=== PATIENT | male | born 1950 | race Caucasian/White ===

== ENCOUNTER 2024-10-05 08:22 | Emergency (ER) | payer BC, MEDICARE ==
[2024-10-05] MEDS: Doxycycline 100 MG Cap PO ONE (09:08)
== END 2024-10-05 09:14 | disposition home or self-care (01) ==
LOC: JP.ED 08:22
DX: S80.861A Insect bite (nonvenomous), right lower leg, initial encounter (principal); S80.862A Insect bite (nonvenomous), left lower leg, initial encounter; Z88.5 Allergy status to narcotic agent; Z79.01 Long term (current) use of anticoagulants; W57.XXXA Bitten or stung by nonvenomous insect and other nonvenomous arthropods, initial encounter; Y93.89 Activity, other specified
CPT/HCPCS: 99282; A9270; 99283

== ENCOUNTER 2024-12-19 11:00 | Emergency (ER) | payer MEDICARE ==
[2024-12-19 11:59] LABS: BASOPHILS ABSOLUTE AUTO 0.03 K/uL (0.00-0.10); BASOPHILS PERCENT AUTO 0.3 % (0.1-1.3); EOSINOPHILS ABSOLUTE AUTO 0.01 K/uL (0.00-0.40); EOSINOPHILS PERCENT AUTO 0.1 % (0.0-5.4); IMMATURE GRAN ABSOLUTE AUTO 0.04 K/uL (0.00-0.23); IMMATURE GRAN PERCENT AUTO 0.4 % (0.0-0.7); LYMPHOCYTES ABSOLUTE AUTO 0.77 K/uL (0.8-3.3); LYMPHOCYTES PERCENT AUTO 8.6 % (11.4-47.7); MONOCYTES ABSOLUTE AUTO 0.49 K/uL (0.20-0.90); MONOCYTES PERCENT AUTO 5.5 % (3.3-12.6); NEUTROPHILS ABSOLUTE AUTO 7.64 K/uL (1.0-7.6); NEUTROPHILS PERCENT AUTO 85.1 % (40.0-78.1); PLATELET COUNT,PLT 170 K/uL (130-375); RED BLOOD CELL COUNT 5.26 M/uL (4.14-5.76); WHITE BLOOD CELL COUNT,WBC 9.0 K/uL (3.2-11.0)
[2024-12-19 12:22] LABS: A/G RATIO 1.3 (1.2-2.2); ALANINE AMINOTRANSFERASE,ALT 46 U/L (12-78); ASPARTATE AMNIOTRANSFERASE,AST 21 U/L (15-37); BILIRUBIN TOTAL 0.8 mg/dL (0.2-1.0); BLOOD UREA NITROGEN,BUN 18 mg/dL (7-18); CARBON DIOXIDE,CO2 30 mmol/L (21-32); CHLORIDE,CL 105 mmol/L (100-108); CREATININE 1.0 mg/dL (0.8-1.3); EST CRCL DRUG DOSING (CG) 71.13 mL/min; ESTIMATED GFR 79 mL/min (>60); GLUCOSE RANDOM 104 mg/dL (74-106); POTASSIUM,K 4.0 mmol/L (3.6-5.2); PROTEIN TOTAL,TP 7.2 g/dL (6.4-8.2); SODIUM,NA 140 mmol/L (140-148)
[2024-12-19 12:25] LABS: LACTIC ACID 2.1 mmol/L (0.4-2.0)
== END 2024-12-19 13:13 | disposition home or self-care (01) ==
LOC: JP.ED 11:00
DX: R10.10 Upper abdominal pain, unspecified (principal); Z88.5 Allergy status to narcotic agent; Z79.01 Long term (current) use of anticoagulants
CPT/HCPCS: 36415; 80053; 83605; 83690; 84484; 85025; 86140; 99284